=== PATIENT | female | born 1955 | race Two or more races ===

== ENCOUNTER 2023-09-25 18:40 | Inpatient (IN) | payer MEDICARE, OTHER ==
[~2023-09-25] VITALS: Ht 167.6 cm; Wt 83.9 kg
[2023-09-25 20:35] LABS: BASOPHILS # (AUTO) 0.1 K/uL (0.0-0.2); BASOPHILS % (AUTO) 0.9 % (0.0-2.0); EOSINOPHILS # (AUTO) 0.2 K/uL (0.0-0.7); EOSINOPHILS % (AUTO) 2.5 % (0.0-6.0); HEMATOCRIT 45 % (33-45); HEMOGLOBIN 14.6 g/dL (11.5-14.8); LYMPHOCYTES # (AUTO) 2.2 K/uL (0.8-4.8); LYMPHOCYTES % (AUTO) 33.4 % (20.0-44.0); MEAN CORPUSCULAR HEMOGLOBIN 29 PG (26.0-33.0); MEAN CORPUSCULAR HGB CONC 33 g/dl (31.0-36.0); MEAN CORPUSCULAR VOLUME 89 fL (82-100); MONOCYTES # (AUTO) 0.7 K/uL (0.1-1.30); MONOCYTES % (AUTO) 10.4 % (2.0-12.0); NEUTROPHILS # (AUTO) 3.4 K/uL (1.8-8.9); NEUTROPHILS % (AUTO) 52.8 % (43.0-81.0); PLATELET COUNT (AUTO) 137 K/uL (150-450); RED CELL DISTRIBUTION WIDTH 16.6 % (11.5-15.0); WHITE BLOOD COUNT (AUTO) 6.5 K/uL (4.3-11.0)
[2023-09-25 20:47] LABS: APPEARANCE,URINE CLEAR (CLEAR); BILIRUBIN,URINE 2+ (NEGATIVE); BLOOD, URINE TRACE-INTA Ery/uL (NEGATIVE); COLOR,URINE YELLOW (YELLOW); KETONES,URINE 2+ mg/dL (NEGATIVE); LEUKOCYTE ESTERASE ,URINE TRACE (NEGATIVE); NITRITE, URINE NEGATIVE (NEGATIVE); PROTEIN,URINE TRACE mg/dl (NEGATIVE); UGLUCOSE NEGATIVE (NEGATIVE)
[2023-09-25 20:55] LABS: ADD URINE CULTURE NO; BACTERIA,URINE 1+ /HPF (None Seen)
[2023-09-25 20:56] LABS: MUCUS,URINE Many /LPF (None Seen)
[2023-09-25 21:09] LABS: CALCIUM, SERUM 9.8 mg/dL (8.5-10.1); CARBON DIOXIDE 26 mmol/L (21-32); CHLORIDE 100 mmol/L (98-107); CREATININE 0.6 mg/dL (0.6-1.3); GLUCOSE 84 mg/dL (74-106); POTASSIUM 4.2 mmol/L (3.5-5.1); SODIUM SERUM 133 mmol/L (136-145); UREA NITROGEN, BLOOD 9 mg/dL (7-18)
[2023-09-25 21:14] LABS: AMPHETAMINE, URINE NEGATIVE (NEGATIVE); BARBITURATE, URINE NEGATIVE (NEGATIVE); BENZODIAZEPINE, URINE NEGATIVE (NEGATIVE); CANNABINOID, URINE NEGATIVE (NEGATIVE); COCCAINE, URINE NEGATIVE (NEGATIVE); OPIATE, URINE NEGATIVE (NEGATIVE); PHENCYCLIDINE SCREEN,URINE NEGATIVE (NEGATIVE)
[2023-09-25 21:17] LABS: ALANINE AMINOTRANSFERASE 46 U/L (12-78); ALBUMIN 3.5 g/dL (3.4-5.0); ALKALINE PHOSPHATASE 147 U/L (46-116); ASPARTATE AMINOTRANSFERASE 28 U/L (15-37); BILIRUBIN,DIRECT 0.3 mg/dL (0.0-0.2); BILIRUBIN,TOTAL 1.2 mg/dL (0.2-1.0); TOTAL PROTEIN, SERUM 7.2 g/dL (6.4-8.2)
[2023-09-25 21:19] LABS: ACETAMINOPHEN <10 ug/ml (10-30); ALCOHOL, BLOOD < 3 mg/dL (0-10); SALICYLATE < 0.2 mg/dL (2.8-20.0)
[2023-09-26 00:59] VITALS: BP 148/75; TEMP 98.2; O2SAT 93
[2023-09-26] MEDS ORDERED: ATOR40TA PO (01:25)
[2023-09-26] MEDS ORDERED: BISA10SU11 RC (01:26)
[2023-09-26] MEDS ORDERED: DIVA-78 PO (01:28)
[2023-09-26] MEDS ORDERED: DOCU100C36 PO (01:29)
[2023-09-26] MEDS ORDERED: FAMO20TA8 PO (01:29)
[2023-09-26] MEDS ORDERED: IPRA3AMP22 IH (01:31)
[2023-09-26] MEDS ORDERED: QUET25TA PO (01:35)
[2023-09-26] MEDS ORDERED: LEVE100S PO (01:35)
[2023-09-26] MEDS ORDERED: SENN-18 PO (01:36)
[2023-09-26] MEDS ORDERED: THIA500T PO (01:38)
[2023-09-26] MEDS ORDERED: TEMAZEPAM 7.5 MG CAPSULE PO PRN (02:00)
[2023-09-26] MEDS ORDERED: ACETAMINOPHEN 325 MG TABLET PO PRN (02:00)
[2023-09-26] MEDS ORDERED: MAG HYDROX/AL HYDROX/SIMETH 30 ML UDC PO PRN (02:00)
[2023-09-26] MEDS ORDERED: MAGNESIUM HYDROXIDE 30 ML UDC PO PRN (02:00)
[2023-09-26] MEDS ORDERED: BLOOD SUGAR DIAGNOSTIC 1 EACH STRIP IN ONE (02:00)
[2023-09-26] MEDS ORDERED: LORAZEPAM 0.5 MG TABLET PO PRN (02:00)
[2023-09-26] MEDS ORDERED: Z GUARD REMEDY 4 OZ OINT TP PRN (03:30)
[2023-09-26 08:00] VITALS: BP 135/66; TEMP 97.9; O2SAT 96
[2023-09-26] MEDS: CEPHALEXIN MONOHYDRATE 250 MG CAPSULE PO SCH ×2 (09:21→21:25)
[2023-09-26] MEDS: ENSURE ENLIVE CHOC 237 ML CAN PO SCH ×2 (09:43→17:04)
[2023-09-26] MEDS: risperiDONE 1 MG TABLET PO SCH ×2 (14:19→17:04)
[2023-09-26] MEDS ORDERED: DOCUSATE SODIUM 100 MG CAPSULE PO PRN (15:30)
[2023-09-26] MEDS ORDERED: BISACODYL SUPP (10 MG) 10 MG/SUPP.RECT SUPP.RECT RC PRN (15:30)
[2023-09-26 16:00] VITALS: BP 120/64; TEMP 97.9; O2SAT 94
[2023-09-26] MEDS: LEVETIRACETAM SOL (5 ML) 100 MG/ML UDC PO SCH (17:04)
[2023-09-26 20:03] VITALS: BP 127/83; TEMP 98.2; O2SAT 95
[2023-09-26] MEDS: SENNOSIDES 8.6 MG TABLET PO SCH (21:26)
[2023-09-26] MEDS: ATORVASTATIN 40 MG TABLET PO SCH (21:26)
[2023-09-27] MEDS: PANTOPRAZOLE 40 MG TABLET.DR PO SCH ×2 (07:30→09:58)
[2023-09-27 08:00] VITALS: BP 128/64; TEMP 97.8; O2SAT 96
[2023-09-27] MEDS: DIVALPROEX SODIUM 500 MG TABLET.DR PO SCH ×2 (09:00→09:58)
[2023-09-27] MEDS: LEVETIRACETAM SOL (5 ML) 100 MG/ML UDC PO SCH ×2 (09:00→09:59)
[2023-09-27] MEDS: CEPHALEXIN MONOHYDRATE 250 MG CAPSULE PO SCH ×2 (09:00→09:57)
[2023-09-27] MEDS: ENSURE ENLIVE CHOC 237 ML CAN PO SCH ×4 (09:00→09:58)
[2023-09-27] MEDS: risperiDONE 1 MG TABLET PO SCH ×4 (09:00→17:00)
[2023-09-27 16:00] VITALS: BP 130/75; TEMP 98.6; O2SAT 95
[2023-09-27 20:10] VITALS: BP 143/78; TEMP 98.6; O2SAT 95
[2023-09-27] MEDS: SENNOSIDES 8.6 MG TABLET PO SCH (22:12)
[2023-09-27] MEDS: ATORVASTATIN 40 MG TABLET PO SCH (22:12)
[2023-09-28 07:29] LABS: BASOPHILS % (AUTO) 0.4 % (0.0-2.0); EOSINOPHILS # (AUTO) 0.3 K/uL (0.0-0.7); EOSINOPHILS % (AUTO) 3.6 % (0.0-6.0); HEMATOCRIT 43 % (33-45); LYMPHOCYTES # (AUTO) 2.2 K/uL (0.8-4.8); LYMPHOCYTES % (AUTO) 29.5 % (20.0-44.0); MEAN CORPUSCULAR HEMOGLOBIN 29 PG (26.0-33.0); MEAN CORPUSCULAR HGB CONC 33 g/dl (31.0-36.0); MEAN CORPUSCULAR VOLUME 89 fL (82-100); MONOCYTES % (AUTO) 12.9 % (2.0-12.0); NEUTROPHILS % (AUTO) 53.6 % (43.0-81.0); PLATELET COUNT (AUTO) 151 K/uL (150-450); RED BLOOD CELL COUNT(AUTO) 4.75 MIL/uL (4.0-5.2); RED CELL DISTRIBUTION WIDTH 16.6 % (11.5-15.0); WHITE BLOOD COUNT (AUTO) 7.4 K/uL (4.3-11.0)
[2023-09-28 08:00] VITALS: BP 150/73; TEMP 98.7; O2SAT 96
[2023-09-28 08:13] LABS: ALBUMIN 2.9 g/dL (3.4-5.0); BILIRUBIN,TOTAL 0.9 mg/dL (0.2-1.0); CALCIUM, SERUM 9.3 mg/dL (8.5-10.1); CREATININE 0.8 mg/dL (0.6-1.3); POTASSIUM 4.1 mmol/L (3.5-5.1); TOTAL PROTEIN, SERUM 6.4 g/dL (6.4-8.2)
[2023-09-28] MEDS: ENSURE ENLIVE CHOC 237 ML CAN PO SCH ×2 (08:33→16:41)
[2023-09-28] MEDS: LEVETIRACETAM (250 MG) 250 MG TABLET PO SCH ×2 (09:31→16:42)
[2023-09-28] MEDS: DIVALPROEX SODIUM 500 MG TABLET.DR PO SCH ×3 (09:32→13:00)
[2023-09-28] MEDS: CEPHALEXIN MONOHYDRATE 250 MG CAPSULE PO SCH ×2 (09:32→21:00)
[2023-09-28] MEDS: risperiDONE 1 MG TABLET PO SCH ×3 (09:32→22:00)
[2023-09-28 15:59] VITALS: BP 119/65; TEMP 96.9; O2SAT 96
[2023-09-28 20:00] VITALS: BP 117/74; TEMP 97.3; O2SAT 95
[2023-09-28] MEDS: SENNOSIDES 8.6 MG TABLET PO SCH (22:00)
[2023-09-28] MEDS: ATORVASTATIN 40 MG TABLET PO SCH (22:00)
[2023-09-29 08:00] VITALS: BP 113/59; TEMP 97.9; O2SAT 96
[2023-09-29] MEDS: ENSURE ENLIVE CHOC 237 ML CAN PO SCH ×3 (08:32→17:46)
[2023-09-29] MEDS: PANTOPRAZOLE 40 MG TABLET.DR PO SCH (08:32)
[2023-09-29] MEDS: risperiDONE 1 MG TABLET PO SCH ×3 (09:46→21:26)
[2023-09-29] MEDS: DIVALPROEX SODIUM 500 MG TABLET.DR PO SCH ×2 (09:46→13:00)
[2023-09-29] MEDS: CEPHALEXIN MONOHYDRATE 250 MG CAPSULE PO SCH ×2 (09:46→20:52)
[2023-09-29] MEDS: LEVETIRACETAM (250 MG) 250 MG TABLET PO SCH ×2 (09:46→17:46)
[2023-09-29 16:00] VITALS: BP 132/59; TEMP 97.5; O2SAT 93
[2023-09-29 19:38] VITALS: BP 132/69; TEMP 97.6; O2SAT 97
[2023-09-29] MEDS: ATORVASTATIN 40 MG TABLET PO SCH (21:26)
[2023-09-29] MEDS: SENNOSIDES 8.6 MG TABLET PO SCH (21:27)
[2023-09-30] MEDS: PANTOPRAZOLE 40 MG TABLET.DR PO SCH ×2 (07:30→08:23)
[2023-09-30] MEDS: ENSURE ENLIVE CHOC 237 ML CAN PO SCH ×5 (08:00→17:19)
[2023-09-30 08:02] VITALS: BP 121/70; TEMP 98; O2SAT 95
[2023-09-30] MEDS: LEVETIRACETAM (250 MG) 250 MG TABLET PO SCH ×3 (08:24→16:06)
[2023-09-30] MEDS: CEPHALEXIN MONOHYDRATE 250 MG CAPSULE PO SCH ×3 (08:25→21:00)
[2023-09-30] MEDS: risperiDONE 1 MG TABLET PO SCH ×3 (08:25→21:27)
[2023-09-30] MEDS: DIVALPROEX SODIUM 500 MG TABLET.DR PO SCH (08:25)
[2023-09-30 14:45] VITALS: BP 114/64; TEMP 97.7; O2SAT 93
[2023-09-30] MEDS: ATORVASTATIN 40 MG TABLET PO SCH (21:27)
[2023-09-30] MEDS: SENNOSIDES 8.6 MG TABLET PO SCH (21:28)
[2023-09-30 21:49] VITALS: BP 118/71; TEMP 97.8; O2SAT 96
[2023-10-01] MEDS: PANTOPRAZOLE 40 MG TABLET.DR PO SCH (07:30)
[2023-10-01 08:00] VITALS: BP 120/68; TEMP 97.9; O2SAT 97
[2023-10-01] MEDS: ENSURE ENLIVE CHOC 237 ML CAN PO SCH ×3 (08:00→17:21)
[2023-10-01] MEDS: LEVETIRACETAM (250 MG) 250 MG TABLET PO SCH ×2 (09:00→17:00)
[2023-10-01] MEDS: CEPHALEXIN MONOHYDRATE 250 MG CAPSULE PO SCH ×2 (09:00→21:00)
[2023-10-01] MEDS: risperiDONE 1 MG TABLET PO SCH ×3 (09:00→21:28)
[2023-10-01] MEDS: DIVALPROEX SODIUM 125 MG CAP.SPRINK PO SCH ×2 (13:00→17:00)
[2023-10-01 16:00] VITALS: BP 127/76; TEMP 97.9; O2SAT 94
[2023-10-01 20:00] VITALS: BP 108/69; TEMP 97.6; O2SAT 97
[2023-10-01] MEDS: ATORVASTATIN 40 MG TABLET PO SCH (21:28)
[2023-10-01] MEDS: SENNOSIDES 8.6 MG TABLET PO SCH (21:28)
[2023-10-02] MEDS: PANTOPRAZOLE 40 MG TABLET.DR PO SCH (07:30)
[2023-10-02 08:00] VITALS: BP 128/76; TEMP 98.9; O2SAT 99
[2023-10-02] MEDS: ENSURE ENLIVE CHOC 237 ML CAN PO SCH ×2 (08:38→16:36)
[2023-10-02] MEDS: LEVETIRACETAM (250 MG) 250 MG TABLET PO SCH ×2 (08:58→16:29)
[2023-10-02] MEDS: CEPHALEXIN MONOHYDRATE 250 MG CAPSULE PO SCH ×2 (08:58→21:48)
[2023-10-02] MEDS: risperiDONE 1 MG TABLET PO SCH ×2 (08:58→16:30)
[2023-10-02] MEDS: DIVALPROEX SODIUM 125 MG CAP.SPRINK PO SCH ×3 (08:58→16:29)
[2023-10-02] MEDS ORDERED: OLANZAPINE 10 MG VIAL IM ONE (10:30)
[2023-10-02] MEDS ORDERED: risperiDONE 1 MG TABLET ONE (11:13)
[2023-10-02] MEDS ORDERED: OLANZAPINE 10 MG VIAL IM PRN (12:30)
[2023-10-02 16:00] VITALS: BP 127/62; TEMP 98.4; O2SAT 95
[2023-10-02 19:06] LABS: BASOPHILS % (AUTO) 0.3 % (0.0-2.0); EOSINOPHILS # (AUTO) 0.2 K/uL (0.0-0.7); EOSINOPHILS % (AUTO) 2.6 % (0.0-6.0); HEMATOCRIT 40 % (33-45); HEMOGLOBIN 13.2 g/dL (11.5-14.8); LYMPHOCYTES # (AUTO) 3.2 K/uL (0.8-4.8); LYMPHOCYTES % (AUTO) 38.8 % (20.0-44.0); MEAN CORPUSCULAR HEMOGLOBIN 29 PG (26.0-33.0); MEAN CORPUSCULAR HGB CONC 33 g/dl (31.0-36.0); MEAN CORPUSCULAR VOLUME 89 fL (82-100); MONOCYTES # (AUTO) 0.9 K/uL (0.1-1.30); MONOCYTES % (AUTO) 11.3 % (2.0-12.0); NEUTROPHILS # (AUTO) 3.8 K/uL (1.8-8.9); PLATELET COUNT (AUTO) 186 K/uL (150-450); RED BLOOD CELL COUNT(AUTO) 4.53 MIL/uL (4.0-5.2); RED CELL DISTRIBUTION WIDTH 16.3 % (11.5-15.0); WHITE BLOOD COUNT (AUTO) 8.2 K/uL (4.3-11.0)
[2023-10-02 19:58] LABS: ALBUMIN 2.9 g/dL (3.4-5.0); BILIRUBIN,TOTAL 0.5 mg/dL (0.2-1.0); CALCIUM, SERUM 8.9 mg/dL (8.5-10.1); POTASSIUM 3.9 mmol/L (3.5-5.1); TOTAL PROTEIN, SERUM 6.1 g/dL (6.4-8.2)
[2023-10-02 20:00] VITALS: BP 122/72; TEMP 98.7; O2SAT 96
[2023-10-02] MEDS: SENNOSIDES 8.6 MG TABLET PO SCH (21:49)
[2023-10-02] MEDS: ATORVASTATIN 40 MG TABLET PO SCH (21:49)
[2023-10-03 08:00] VITALS: BP 118/60; TEMP 98.1; O2SAT 95
[2023-10-03] MEDS: ENSURE ENLIVE CHOC 237 ML CAN PO SCH ×2 (08:25→16:16)
[2023-10-03] MEDS: CEPHALEXIN MONOHYDRATE 250 MG CAPSULE PO SCH ×2 (08:25→22:01)
[2023-10-03] MEDS: DIVALPROEX SODIUM 125 MG CAP.SPRINK PO SCH ×3 (08:25→16:15)
[2023-10-03] MEDS: PANTOPRAZOLE 40 MG TABLET.DR PO SCH (08:25)
[2023-10-03] MEDS: risperiDONE 1 MG TABLET PO SCH ×2 (08:25→16:15)
[2023-10-03] MEDS: LEVETIRACETAM (250 MG) 250 MG TABLET PO SCH ×2 (08:25→16:16)
[2023-10-03 16:00] VITALS: BP 121/64; TEMP 97.9; O2SAT 95
[2023-10-03 20:00] VITALS: BP 132/73; TEMP 97.9; O2SAT 96
[2023-10-03] MEDS: ATORVASTATIN 40 MG TABLET PO SCH (21:55)
[2023-10-03] MEDS: SENNOSIDES 8.6 MG TABLET PO SCH (21:55)
[2023-10-04] MEDS: ENSURE ENLIVE CHOC 237 ML CAN PO SCH ×2 (07:31→16:43)
[2023-10-04] MEDS: PANTOPRAZOLE 40 MG TABLET.DR PO SCH (07:31)
[2023-10-04 08:00] VITALS: BP 134/64; TEMP 97.8; O2SAT 98
[2023-10-04] MEDS: CEPHALEXIN MONOHYDRATE 250 MG CAPSULE PO SCH (08:21)
[2023-10-04] MEDS: risperiDONE 1 MG TABLET PO SCH ×2 (08:21→16:44)
[2023-10-04] MEDS: DIVALPROEX SODIUM 125 MG CAP.SPRINK PO SCH ×3 (08:21→16:44)
[2023-10-04] MEDS: LEVETIRACETAM (250 MG) 250 MG TABLET PO SCH ×2 (08:21→16:44)
[2023-10-04 16:00] VITALS: BP 133/68; TEMP 98; O2SAT 96
[2023-10-04 20:22] VITALS: BP 123/73; TEMP 98; O2SAT 95
[2023-10-04] MEDS: ATORVASTATIN 40 MG TABLET PO SCH (21:13)
[2023-10-04] MEDS: SENNOSIDES 8.6 MG TABLET PO SCH (21:13)
[2023-10-05] MEDS: ENSURE ENLIVE CHOC 237 ML CAN PO SCH ×2 (07:59→16:01)
[2023-10-05] MEDS: PANTOPRAZOLE 40 MG TABLET.DR PO SCH (07:59)
[2023-10-05 08:00] VITALS: BP 123/62; TEMP 98.7; O2SAT 96
[2023-10-05] MEDS: LEVETIRACETAM (250 MG) 250 MG TABLET PO SCH ×2 (08:18→16:05)
[2023-10-05] MEDS: risperiDONE 1 MG TABLET PO SCH ×2 (08:18→21:13)
[2023-10-05] MEDS: DIVALPROEX SODIUM 125 MG CAP.SPRINK PO SCH ×3 (08:18→16:04)
[2023-10-05 16:00] VITALS: BP 117/59; TEMP 97.8; O2SAT 97
[2023-10-05 19:58] VITALS: BP 122/72; O2SAT 94
[2023-10-05] MEDS: ATORVASTATIN 40 MG TABLET PO SCH (21:13)
[2023-10-05] MEDS: SENNOSIDES 8.6 MG TABLET PO SCH (21:13)
[2023-10-06 06:25] LABS: BASOPHILS % (AUTO) 0.2 % (0.0-2.0); EOSINOPHILS # (AUTO) 0.2 K/uL (0.0-0.7); EOSINOPHILS % (AUTO) 1.6 % (0.0-6.0); HEMATOCRIT 37 % (33-45); HEMOGLOBIN 12.3 g/dL (11.5-14.8); LYMPHOCYTES # (AUTO) 3.4 K/uL (0.8-4.8); LYMPHOCYTES % (AUTO) 33.2 % (20.0-44.0); MEAN CORPUSCULAR HEMOGLOBIN 30 PG (26.0-33.0); MEAN CORPUSCULAR HGB CONC 34 g/dl (31.0-36.0); MEAN CORPUSCULAR VOLUME 89 fL (82-100); MONOCYTES # (AUTO) 1.1 K/uL (0.1-1.30); MONOCYTES % (AUTO) 10.7 % (2.0-12.0); NEUTROPHILS # (AUTO) 5.6 K/uL (1.8-8.9); NEUTROPHILS % (AUTO) 54.3 % (43.0-81.0); PLATELET COUNT (AUTO) 176 K/uL (150-450); RED BLOOD CELL COUNT(AUTO) 4.15 MIL/uL (4.0-5.2); RED CELL DISTRIBUTION WIDTH 16.1 % (11.5-15.0); WHITE BLOOD COUNT (AUTO) 10.3 K/uL (4.3-11.0)
[2023-10-06 07:28] LABS: ALBUMIN 2.4 g/dL (3.4-5.0); BILIRUBIN,TOTAL 0.6 mg/dL (0.2-1.0); CALCIUM, SERUM 8.8 mg/dL (8.5-10.1); CREATININE 0.6 mg/dL (0.6-1.3); TOTAL PROTEIN, SERUM 5.8 g/dL (6.4-8.2)
[2023-10-06] MEDS: PANTOPRAZOLE 40 MG TABLET.DR PO SCH ×2 (07:30→11:12)
[2023-10-06 08:00] VITALS: BP 125/64; TEMP 97.8; O2SAT 94
[2023-10-06] MEDS: ENSURE ENLIVE CHOC 237 ML CAN PO SCH ×2 (08:00→18:07)
[2023-10-06] MEDS: LEVETIRACETAM (250 MG) 250 MG TABLET PO SCH ×3 (09:00→17:00)
[2023-10-06] MEDS: risperiDONE 1 MG TABLET PO SCH ×4 (09:00→21:07)
[2023-10-06] MEDS: DIVALPROEX SODIUM 125 MG CAP.SPRINK PO SCH ×5 (09:00→17:00)
[2023-10-06] MEDS: OLANZAPINE 10 MG VIAL IM PRN ×2 (12:21→14:47)
[2023-10-06 16:00] VITALS: BP 133/67; TEMP 99; O2SAT 93
[2023-10-06 19:51] VITALS: BP 113/64; TEMP 98; O2SAT 95
[2023-10-06] MEDS: SENNOSIDES 8.6 MG TABLET PO SCH (21:07)
[2023-10-06] MEDS: ATORVASTATIN 40 MG TABLET PO SCH (21:07)
[2023-10-07 08:00] VITALS: BP 118/62; TEMP 98.1; O2SAT 98
[2023-10-07] MEDS: ENSURE ENLIVE CHOC 237 ML CAN PO SCH ×2 (08:00→16:31)
[2023-10-07] MEDS: PANTOPRAZOLE 40 MG TABLET.DR PO SCH (08:23)
[2023-10-07] MEDS: risperiDONE 1 MG TABLET PO SCH ×3 (09:14→20:49)
[2023-10-07] MEDS: DIVALPROEX SODIUM 125 MG CAP.SPRINK PO SCH ×3 (09:14→16:31)
[2023-10-07] MEDS: LEVETIRACETAM (250 MG) 250 MG TABLET PO SCH ×2 (09:14→16:30)
[2023-10-07 16:36] VITALS: BP 101/63; TEMP 98.1; O2SAT 93
[2023-10-07 19:24] VITALS: BP 130/79; TEMP 99; O2SAT 95
[2023-10-07] MEDS: SENNOSIDES 8.6 MG TABLET PO SCH (21:53)
[2023-10-07] MEDS: ATORVASTATIN 40 MG TABLET PO SCH (21:53)
[2023-10-08 08:00] VITALS: BP 120/73; TEMP 97.9; O2SAT 94
[2023-10-08] MEDS: PANTOPRAZOLE 40 MG TABLET.DR PO SCH (08:37)
[2023-10-08] MEDS: LEVETIRACETAM (250 MG) 250 MG TABLET PO SCH ×2 (08:38→16:20)
[2023-10-08] MEDS: risperiDONE 1 MG TABLET PO SCH ×3 (08:38→21:18)
[2023-10-08] MEDS: DIVALPROEX SODIUM 125 MG CAP.SPRINK PO SCH ×3 (08:38→16:20)
[2023-10-08] MEDS: ENSURE ENLIVE CHOC 237 ML CAN PO SCH ×2 (08:44→17:19)
[2023-10-08 13:04] LABS: THYROID STIMULATING HORMONE 1.19 uIU/mL (0.358-3.74)
[2023-10-08 16:00] VITALS: BP 122/67; TEMP 97.9; O2SAT 95
[2023-10-08] MEDS: ATORVASTATIN 40 MG TABLET PO SCH (21:17)
[2023-10-08] MEDS: SENNOSIDES 8.6 MG TABLET PO SCH (21:18)
[2023-10-09 08:00] VITALS: BP 138/69; TEMP 97.7; O2SAT 94
[2023-10-09] MEDS: risperiDONE 1 MG TABLET PO SCH ×3 (08:25→21:20)
[2023-10-09] MEDS: LEVETIRACETAM (250 MG) 250 MG TABLET PO SCH ×2 (08:25→16:25)
[2023-10-09] MEDS: PANTOPRAZOLE 40 MG TABLET.DR PO SCH (08:25)
[2023-10-09] MEDS: DIVALPROEX SODIUM 125 MG CAP.SPRINK PO SCH ×3 (08:25→16:25)
[2023-10-09] MEDS: ENSURE ENLIVE CHOC 237 ML CAN PO SCH ×2 (08:33→17:13)
[2023-10-09 16:00] VITALS: BP 126/69; TEMP 97.8; O2SAT 96
[2023-10-09 20:04] VITALS: BP 114/69; TEMP 97.9; O2SAT 95
[2023-10-09] MEDS: ATORVASTATIN 40 MG TABLET PO SCH (21:21)
[2023-10-09] MEDS: SENNOSIDES 8.6 MG TABLET PO SCH (21:21)
[2023-10-10 08:00] VITALS: BP 123/64; TEMP 98.9; O2SAT 96
[2023-10-10] MEDS: ENSURE ENLIVE CHOC 237 ML CAN PO SCH ×2 (08:03→16:41)
[2023-10-10] MEDS: PANTOPRAZOLE 40 MG TABLET.DR PO SCH (08:03)
[2023-10-10] MEDS: DIVALPROEX SODIUM 125 MG CAP.SPRINK PO SCH ×3 (09:00→16:41)
[2023-10-10] MEDS: risperiDONE 1 MG TABLET PO SCH ×3 (09:00→21:08)
[2023-10-10] MEDS: LEVETIRACETAM (250 MG) 250 MG TABLET PO SCH ×2 (09:00→16:41)
[2023-10-10] MEDS: OLANZAPINE 10 MG VIAL IM PRN (09:09)
[2023-10-10] MEDS: ENOXAPARIN SODIUM 40 MG/0.4 ML DISP.SYRIN SQ SCH (15:38)
[2023-10-10 16:00] VITALS: BP 125/79; TEMP 98.4; O2SAT 96
[2023-10-10 20:00] VITALS: BP 126/74; TEMP 98; O2SAT 97
[2023-10-10] MEDS: ATORVASTATIN 40 MG TABLET PO SCH (22:25)
[2023-10-10] MEDS: SENNOSIDES 8.6 MG TABLET PO SCH (22:26)
[2023-10-11 08:00] VITALS: BP 109/69; TEMP 98.9; O2SAT 100
[2023-10-11] MEDS: PANTOPRAZOLE 40 MG TABLET.DR PO SCH (08:10)
[2023-10-11] MEDS: ENSURE ENLIVE CHOC 237 ML CAN PO SCH ×2 (08:10→16:06)
[2023-10-11] MEDS: DIVALPROEX SODIUM 125 MG CAP.SPRINK PO SCH ×3 (08:23→16:06)
[2023-10-11] MEDS: risperiDONE 1 MG TABLET PO SCH ×3 (08:23→21:03)
[2023-10-11] MEDS: LEVETIRACETAM (250 MG) 250 MG TABLET PO SCH ×2 (08:23→16:06)
[2023-10-11 16:00] VITALS: BP 132/83; TEMP 98.6; O2SAT 99
[2023-10-11] MEDS: ENOXAPARIN SODIUM 40 MG/0.4 ML DISP.SYRIN SQ SCH (16:06)
[2023-10-11 20:00] VITALS: BP 104/61; TEMP 98.4; O2SAT 95
[2023-10-11] MEDS: SENNOSIDES 8.6 MG TABLET PO SCH (21:03)
[2023-10-11] MEDS: ATORVASTATIN 40 MG TABLET PO SCH (21:03)
[2023-10-12 08:00] VITALS: BP 135/65; TEMP 97.9; O2SAT 98
[2023-10-12] MEDS: ENSURE ENLIVE CHOC 237 ML CAN PO SCH (08:07)
[2023-10-12] MEDS: risperiDONE 1 MG TABLET PO SCH ×2 (08:08→13:28)
[2023-10-12] MEDS: LEVETIRACETAM (250 MG) 250 MG TABLET PO SCH (08:08)
[2023-10-12] MEDS: DIVALPROEX SODIUM 125 MG CAP.SPRINK PO SCH ×2 (08:08→13:28)
[2023-10-12] MEDS: PANTOPRAZOLE 40 MG TABLET.DR PO SCH (08:08)
== END 2023-10-12 13:45 | DRG 885 ==
LOC: ER 18:53 → GPS 09-26 00:14
PROVIDERS: ADMIT Psychiatry & Neurology Psychosomatic Medicine; ATTEND Internal Medicine
DX: F25.0 Schizoaffective disorder, bipolar type (principal); F03.918 Unspecified dementia, unspecified severity, with other behavioral disturbance; N39.0 Urinary tract infection, site not specified; G93.40 Encephalopathy, unspecified; G91.2 (Idiopathic) normal pressure hydrocephalus; K21.9 Gastro-esophageal reflux disease without esophagitis; G40.909 Epilepsy, unspecified, not intractable, without status epilepticus; E78.5 Hyperlipidemia, unspecified; E86.0 Dehydration; Z87.01 Personal history of pneumonia (recurrent); Z20.822 Contact with and (suspected) exposure to COVID-19; F41.9 Anxiety disorder, unspecified; K59.00 Constipation, unspecified; R62.7 Adult failure to thrive; Z68.29 Body mass index [BMI] 29.0-29.9, adult
CPT/HCPCS: 36415; 80048-TC; 80053-TC; 80061-TC; 80076-TC; 81001; 82607-TC; 83921; 84439-TC; 84443-TC; 85025-TC; 87081-TC; 97110-TC; 97112-TC; 97116-TC; 97530-TC; 97535-TC; C9803; G0480; J1650; J1953; J3490